=== PATIENT | female | born 1940 | race Caucasian/White ===

== ENCOUNTER 2018-09-14 12:39 | Inpatient (IN) ==
--- NOTE | 2018-09-14 13:29 | PROVIDER DOCUMENTATION ---
HPI-General Adult - General Chief Complaint: Abnormal Lab[s] Stated Complaint: IRREG LABS Time Seen by Provider: 09/14/18 13:15 Source: patient Allergies/Adverse Reactions: Patient Allergies Allergy/AdvReac Type Severity Reaction Status Date / Time Cephalosporins Allergy Severe ANAPHYLAXIS Verified 09/14/18 12:52 Penicillins Allergy Severe ANAPHYLAXIS Verified 09/14/18 12:52 prochlorperazine edisylate * Allergy Severe TETANY Verified 09/14/18 12:52 [From Compazine] prochlorperazine maleate * Allergy Severe TETANY Verified 09/14/18 12:52 [From Compazine] cephalexin monohydrate * Allergy Intermediate RASH Verified 09/14/18 12:52 [From Keflex] Iodinated Contrast- Oral and Allergy Intermediate HIVES Verified 09/14/18 12:52 IV Dye [Iodinated Contrast Media - IV Dye] Home Medications: Home Medication List Medication Instructions Recorded Confirmed Last Taken Type ATORVAstatin [Lipitor] 40 mg PO QHS 09/14/18 09/14/18 09/13/18 History Clonazepam 0.5 mg PO BID 09/14/18 09/14/18 09/14/18 History Gabapentin 300 mg PO TID 09/14/18 09/14/18 09/14/18 History Levothyroxine [Synthroid] 100 microgm PO DAILY 09/14/18 09/14/18 09/14/18 History Sertraline [Zoloft] 100 mg PO DAILY 09/14/18 09/14/18 09/14/18 History - History of Present Illness -Gen Adult Nature of Presenting Problems: 78yof present to ER with c/o 'abnormal labs". According to pt's spouse Dr Hina antonio's nurse called saying she had "some abnormal labs including jaundice" and referred pt to ER. Pt reports right sided abd pain radiating to the back x 1 month. Pt reports loose stools x 2 weeks. Denies fever. Location of Pain/Injury: reports: abdomen (right) Pain Radiation: reports: back Quality of Pain: reports: aching Onset/Duration: reports: other (1 month) Associated Symptoms: reports: diarrhea, shortness of breath. denies: chest pain, cough, fever/chills, genitourinary problems, nausea, syncope, vomiting Review of Systems - Adult - REVIEW OF SYSTEMS - ADULT Constitutional: reports: no symptoms reported. denies: fever Eyes: reports: no symptoms reported Ears, Nose, Mouth & Throat: reports: no symptoms reported Cardiovascular: reports: no symptoms reported. denies: chest pain, orthopnea, palpitations Respiratory: reports: see HPI, dyspnea on exertion, shortness of breath Gastrointestinal: reports: see HPI, abdominal pain, diarrhea. denies: nausea, vomiting Genitourinary: reports: no symptoms reported. denies: dysuria, frequency, hematuria, urgency Musculoskeletal: reports: see HPI, back pain Integumentary: reports: no symptoms reported Neurological: reports: no symptoms reported Psychiatric: reports: no symptoms reported Endocrine: reports: no symptoms reported Hematologic/Lymphatic: reports: no symptoms reported Allergic/Immunologic: reports: no symptoms reported All Other Systems: Reviewed and Negative Past History - Adult - PAST MEDICAL HISTORY-ADULT Review of Records: reports: Old Records Reviewed, Nursing Assessment Review, Medications Reviewed Major Childhood Illnesses: reports: denies history Cardiovascular: reports: blood clots, HTN, hyperlipidemia Respiratory: reports: denies history Gastrointestinal: reports: denies history Obstetrical/Gynecological: reports: denies history Genitourinary: reports: kidney stones Musculoskeletal: reports: osteoporosis Neurological: reports: CVA, dementia Endocrine/Immune: reports: thyroid disorder Other Conditions: reports: other (osteoporosis) - PRIOR SURGERIES/PROCEDURES Surgical/Procedure History: reports: appendectomy, cholecystectomy, hysterectomy , , orthopedic (extremity) (juanita shoulders, dvt's removed), joint r eplacement (Total hip), back/neck, other (dvt's removed, kidney stone removal) - IMMUNIZATION STATUS Childhood Immunizations: UTD, See Nurse Assessment Flu Vaccine: See Nurse Assessment - FAMILY HISTORY Family History: reviewed, not pertinent Physical Exam-General - PHYSICAL EXAM-ADULT Initial Vital Signs Reviewed: Yes - CONSTITUTIONAL General Appearance: alert, no apparent distress - EYES Eyes: PERRL/EOMI, pale conjunctivae, scleral icterus - HEAD, EARS, NOSE, MOUTH & THROAT HENMT: moist mucous membranes, normal ENT inspection - NECK Neck: full range of motion, supple, normal inspection - RESPIRATORY Respiratory: chest non-tender, lungs clear, normal breath sounds, no respiratory distress, no accessory muscle use - CARDIOVASCULAR Cardiovascular: regular rate, rhythm - GASTROINTESTINAL (ABDOMEN) Abdominal Exam: normal bowel sounds, soft, tenderness (right sided). negative: distended, guarding, rigid, rebound - LYMPHATIC Lymphatic: no adenopathy - MUSCULOSKELETAL Back Exam: normal inspection, no CVA tenderness, no vertebral tenderness Extremity: normal range of motion, normal inspection - SKIN Integumentary: normal turgor, warm/dry, jaundice - NEUROLOGIC Neurologic: grossly normal, no motor/sensory deficits - PSYCHIATRIC Psych/Mental Status: normal mood/affect, normal thought content, normal thought process, oriented x 3 Progress - PLAN OF CARE/RESULTS Progress/Plan/Lab Results: Vital Signs - 8 hr 09/14/18 12:45 Temperature 97.6 F Pulse Rate 93 H Respiratory Rate 18 Blood Pressure 129/85 O2 Sat by Pulse Oximetry 91 L Orders Category Date Time Status CHEST-2 VIEWS [RAD] Stat Exams 09/14/18 13:[address] ABD/PELVIS W/IV CONT ONLY [CT] Stat Exams 09/14/18 13:22 Ordered AMMONIA [CHEM] Stat Lab 09/14/18 13:22 Uncollected CBC WITH DIFF [HEME] Stat Lab 09/14/18 13:22 Uncollected COMPREHENSIVE METABOLIC PANEL [CHEM] Stat Lab 09/14/18 13:22 Uncollected LACTATE, PLASMA [CHEM] Stat Lab 09/14/18 13:22 Uncollected LIPASE [CHEM] Stat Lab 09/14/18 13:[address] W/POSS RFLX CULT [URINALYSIS] Stat Lab 09/14/18 13:22 Uncollected Result Diagrams: 09/14/18 14:04 09/14/18 14:04 - REASSESSMENT Reassessment #1 Time Reassessed: 14:52 (Discussed CT abd report and labs with Dr Mena, suggests ordering u/s of abdomen for further eval of pancreas and liver) Reassessment #2 Time Reassessed: 16:23 (Discussed results and plan for admission to [facility]. Agrees with this. ) - XRAY 1 XRAY Study: Chest Impression: See EMR Report (There is stable mild cardiomegaly. Inspiration is mildly shallow. There is scarring at the right upper lobe and left base similar to prior. The lungs appear to be clear of acute changes. There is no pleural effusion or pneumothorax identified. There are old mid thoracic vertebral body compression deformities noted. IMPRESSION: Stable mild cardiomegaly. Mildly shallow inspiration. No other evidence of acute disease. Electronically signed by Moses Graves 09/14/2018 2:41 PM) - CT/MRI 1 CT Study: Abdomen, Pelvis Impression: See EMR Report (There is a small, stable pulmonary nodule in the peripheral left lower lobe measuring about 8 mm. No infiltrates. Stable cholecystectomy changes. There are several obstructing stones in the right UPJ. The largest measures about 2 x 1 cm. There is moderate right hydronephrosis. There are also several right renal stones. On the left side, there is stable moderate hydronephrosis compatible with congenital UPJ stenosis. There are several sided renal stones as well measuring up to 12 x 8 mm. There is an IVC filter in good position. Stable right hip prosthesis. Stable vertebroplasty changes and fusion changes of the spine. No new bony lesions. No bowel obstruction or inflammation. IMPRESSION: Obstructing right UPJ stones. Significant bilateral nephrolithiasis. 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 This exam was performed using automated exposure control, adjustment of mA or kV according to patient size, and/or use of iterative reconstruction technique Electronically signed by Dawit Navarro 09/14/2018 2:33 PM) - ULTRASOUND (By Radiology) 1 US Study: Abdomen Impression: See EMR Report ( The gallbladder is absent. There is mild splenomegaly. The spleen measures 14.1 x 14 x 4 cm. There are bilateral renal stones and bilateral hydronephrosis. Common bile duct measures 1.2 cm. Aorta, IVC, and main portal vein are patent. No free fluid. IMPRESSION: Splenomegaly. Bilateral renal stones. Bilateral hydronephrosis. Electronically signed by Dawit Navarro 09/14/2018 3:58 PM) - CONSULTS/PCP/HOSPITALIST Notification #1 *Consult/PCP/Hospitalist*: Dr Garcia, hospitalist Time Discussed: 16:10 (requests I consult urology ) Consult Disposition: Admit #2 Consult: Dr Parham oncall urologist Time Discussed: 16:15 (States continue with cipro IV, admit pt to [facility] and he will see pt tomorrow) Reason/Comments: admit to [facility] Consult Disposition: Admit Departure - Departure Date of Disposition Decision: 09/14/18 Time of Disposition Decision: 16:04 DIAGNOSIS: Elevated LFTs, Jaundice Pancreatitis Qualifiers: Chronicity: acute Pancreatitis type: unspecified pancreatitis type Acute pancreatitis complication: unspecified Qualified Code(s): K85.90 - Acute pancreatitis without necrosis or infection, unspecified Disposition: ADMITTED INPATIENT 09 Certified Medical Emergency: Emergent Condition: Fair Referrals and Follow-Ups: Robinson Holt MD [Primary Care Provider] - - Critical Care Note This patient required my direct & personal management of CC.: No Attestation - Physician/ BETH Attestation Patient care was provided by Advanced Practice Provider:: Yes Advanced Practice Provider:: Debora Enriquez Advanced Practice Provider documentation review:: The Mid-level provider documentation, treatment plan and medical decision making was reviewed by the ph ysician who agrees with all treatment and medical decision making by the MLP. The physician spent face to face time with patient:: Yes Advanced Practice Provider documentation review:: Supervising physician onsite and consulted in the evaluation and care of this patient. The physician did have a face to face encounter with the patient.
[2018-09-14 14:15] LABS: BASO# 0.05 X1000 (0.0-0.2); BASO% 0.5 % (0.0-0.8); EOS# 0.31 X1000 (0.0-0.7); EOS% 3.1 % (0.0-10.0); HEMATOCRIT 36.7 % (37.0-47.0); IMM GRAN# 0.02 X1000 (0.0-0.04); IMM GRAN% 0.2 % (0.0-0.5); LYMPH# 1.34 X1000 (1.2-3.4); LYMPH% 13.2 % (20.5-51.1); MCH 28.6 PG (27-31); MCHC 32.7 g/dL (33-37); MCV 87.4 FL (81-99); MONO# 1.03 X1000 (0.11-0.59); MONO% 10.2 % (1.7-9.3); MPV 12.9 FL (7.4-10.4); NEUT# 7.39 X1000 (1.4-6.5); NEUT% 72.8 % (42.2-75.2); PLT 181 X1000 (130-400); RDW 14.8 % (11.5-14.5); WBC 10.14 X1000 (4.8-10.8)
[2018-09-14 14:30] LABS: INR 1.11; PROTIME 14.9 Seconds (11.0-16.0)
[2018-09-14 14:31] LABS: PTT 33.9 Seconds (22.3-41.8)
[2018-09-14 14:36] LABS: ALBUMIN 3.1 g/dL (3.5-5.0); CALCIUM 8.4 mg/dL (8.8-10.2); POTASSIUM 3.5 mmol/L (3.5-5.1); TOTAL BILIRUBIN 4.8 mg/dL (0.20-1.00); TOTAL PROTEIN 6.9 g/dL (6.3-8.3)
--- NOTE | 2018-09-14 14:36 | Diag Imaging Result Doc PS360 ---
CT ABDOMEN/PELVIS W/O CONTRAST - 09/14/2018 INDICATION: lower abdominal pain/tenderness COMPARISON: 08/17/2017 FINDINGS: There is a small, stable pulmonary nodule in the peripheral left lower lobe measuring about 8 mm. No infiltrates. Stable cholecystectomy changes. There are several obstructing stones in the right UPJ. The largest measures about 2 x 1 cm. There is moderate right hydronephrosis. There are also several right renal stones. On the left side, there is stable moderate hydronephrosis compatible with congenital UPJ stenosis. There are several sided renal stones as well measuring up to 12 x 8 mm. There is an IVC filter in good position. Stable right hip prosthesis. Stable vertebroplasty changes and fusion changes of the spine. No new bony lesions. No bowel obstruction or inflammation. IMPRESSION: Obstructing right UPJ stones. Significant bilateral nephrolithiasis. 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 This exam was performed using automated exposure control, adjustment of mA or kV according to patient size, and/or use of iterative reconstruction technique Electronically signed by Dawit Navarro 09/14/2018 2:33 PM
--- NOTE | 2018-09-14 14:43 | Diag Imaging Result Doc PS360 ---
EXAM: CHEST-2 VIEWS - 09/14/2018 HISTORY: sob TECHNIQUE: Chest two views COMPARISON: 04/09/2018 FINDINGS: There is stable mild cardiomegaly. Inspiration is mildly shallow. There is scarring at the right upper lobe and left base similar to prior. The lungs appear to be clear of acute changes. There is no pleural effusion or pneumothorax identified. There are old mid thoracic vertebral body compression deformities noted. IMPRESSION: Stable mild cardiomegaly. Mildly shallow inspiration. No other evidence of acute disease. Electronically signed by Moses Graves 09/14/2018 2:41 PM
[2018-09-14 15:23] LABS: BILIRUBIN URINE 2+ (NEGATIVE); BLOOD URINE 4+ (NEGATIVE); GLUCOSE URINE NEGATIVE (NEGATIVE); KETONE URINE TRACE mg/dL (NEGATIVE); LEUKOCYTES URINE 2+ (NEGATIVE); NITRITE URINE POSITIVE (NEGATIVE); PH URINE 6.5; PROTEIN URINE 2+(100 mg/dL) mg/dL (NEGATIVE); SP GRAVITY URINE 1.015; UROBILINOGEN URINE NORMAL
[2018-09-14 15:24] LABS: CLARITY VERY CLOUDY (CLEAR); COLOR AMBER
[2018-09-14 15:27] LABS: URINE BACTERIA 4+ /HFP; URINE CAST NONE SEEN /LPF; URINE CRYSTAL NONE SEEN /HPF; URINE EPITHELIAL CELLS <10 /HPF (<10); URINE RBC TNTC /HPF (<10); URINE SOURCE CLEAN CATCH; URINE WBC TNTC /HPF (<10); URINE YEAST NONE SEEN /HPF
[2018-09-14] MEDS ORDERED: CIPRO 400 MG/D5W 400 MG/200 ML IVPB IV ONE (15:30)
--- NOTE | 2018-09-14 16:00 | Diag Imaging Result Doc PS360 ---
US ABDOMEN-COMPLETE - 09/14/2018 INDICATION: abd pain, elevated LFTs, pancreatitis COMPARISON: CT from earlier today FINDINGS: The gallbladder is absent. There is mild splenomegaly. The spleen measures 14.1 x 14 x 4 cm. There are bilateral renal stones and bilateral hydronephrosis. Common bile duct measures 1.2 cm. Aorta, IVC, and main portal vein are patent. No free fluid. IMPRESSION: Splenomegaly. Bilateral renal stones. Bilateral hydronephrosis. Electronically signed by Dawit Navarro 09/14/2018 3:58 PM
--- NOTE | 2018-09-14 17:03 | HISTORY AND PHYSICAL ---
PRIMARY CARE PHYSICIAN: DR. Holt. CHIEF COMPLAINT: Right-sided abdominal pain radiating to her back for 1 month that had progressively worsened. States that her primary care physician's nurse called after she had some labs drawn, saying they were abnormal and that she was jaundiced and she needed to come to the emergency room. HISTORY OF PRESENTING ILLNESS: This is an 78-year-old female, who presents to [facility] ER with complaints of right-sided abdominal pain that radiated to her back that has been present for about a month but has progressively worsened. She had apparently been seen by her primary care physician, who ordered some labs and the nurse called today from the primary care physician's office, stating that she had some "abnormal labs including jaundice," and referred her to come to the emergency room. Her laboratory data showed a total bilirubin of 4.80, an AST of 90, ALT 57, alkaline phosphatase was 689. Ammonia level was normal at 40. Lipase was 1064. Her urinalysis showed positive nitrites, 2+ white blood cells, 4+ bacteria. 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 We did an abdomen ultrasound that showed splenomegaly, bilateral renal stones, and bilateral hydronephrosis. She is noted to be jaundice in color, including the jaundice to the sclerae of her eyes and so she will be admitted to the [facility] for Gastroenterology and Urology consultation for further evaluation and treatment. PAST MEDICAL HISTORY: Hypertension, hyperlipidemia, kidney stones, CVA, hypothyroidism, and dementia. PAST SURGICAL HISTORY: Appendectomy, cholecystectomy, hysterectomy, right total hip replacement, back and neck surgery, a , right shoulder surgery, and an IVC filter placed in her thigh for a DVT. FAMILY HISTORY: Reviewed and noncontributory. SOCIAL HISTORY: She currently lives with family. Denies any tobacco, alcohol, or illicit drug use. ALLERGIES: Cephalosporins, penicillin, Compazine, and iodinated contrast, oral and IV dye. HOME MEDICATIONS: We will hold her atorvastatin 40 mg p.o. at bedtime and continue the following: Klonopin 0.5 mg p.o. b.i.d., gabapentin 300 mg p.o. t.i.d., Synthroid 100 mcg p.o. daily and Zoloft 100 mg p.o. daily. LABORATORY DATA: Showed a white blood cell count of 10.14, hemoglobin 12, hematocrit 36.7, platelets 181,000. PT of 14.9 and INR 1.11. Sodium of 140, potassium 3.5, chloride 105, CO2 of 23, BUN of 13, creatinine 1, glucose 275, total bilirubin of 4.80, AST of 90, ALT 57, alkaline phosphatase 689, ammonia level of 40. Lipase 1064 with a plasma lactate of 1.1. Urinalysis with positive nitrites, 4+ blood, 2+ white blood cells, 4+ bacteria. 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 Abdominal ultrasound showed splenomegaly, bilateral renal stones, and bilateral hydronephrosis. REVIEW OF SYSTEMS: She denied any fever, chills, blurred vision, dizziness, chest pain, coughing, shortness of breath. She was positive for right-sided abdominal pain that radiated into her back, some nausea, but no vomiting. She has had loose stool, but denied diarrhea or constipation, and has had some mild burning and hurting with urination. PHYSICAL EXAMINATION: VITAL SIGNS: On arrival she had a temperature of 97.6 degrees, pulse 93, respirations 18, blood pressure 129/85, saturating 91% on room air. GENERAL: This is an 78-year-old female, lying in the bed, answers questions appropriately. HENT: Normocephalic, atraumatic. Normal ENT inspection. Oropharynx and nares are clear. EYES: Pupils are equal, round, reactive to light and accommodation. Extraocular movements are intact. Her sclerae are noted to be jaundiced. NECK: Normal inspection. Normal range of motion. LUNGS: Clear to auscultation bilaterally with equal lung expansion and chest wall movement. HEART: With regular rate and rhythm. No murmurs, rubs, or gallops. ABDOMEN: Soft. There is tenderness to the right side of her abdomen to palpation. Bowel sounds are present x4 quadrants. MUSCULOSKELETAL: She has 5/5 strength x4 extremities. SKIN: Noted to be an jaundiced mildly in appearance. NEUROLOGICAL: The cranial nerves 2-12 appear grossly intact. ASSESSMENT: 1. Bilateral renal stones. 2. Bilateral hydronephrosis. 3. Urinary tract infection (UTI). 4. Acute pancreatitis. 5. Elevated liver function tests. PLAN: She will be transferred to the [facility]. Placed on telemetry. We will consult Urology and Gastroenterology. We will place on normal saline at 100 mL an hour, Rocephin 1 gram IV q.24 h. Urine culture is pending. Placed on a clear liquid diet. We will check a CBC, BMP, and hepatic function and a magnesium level in the a.m. Further orders after being seen by attending and by consultants. Dictated by FRED Horne for Bj Shin MD Addendum: Patient seen and examined by myself. Agree with FRED note. It reflects my assessment and plan. Patient is being admitted to hospital for new onset of acute pancreatitis. She came for abdominal pain and on CT scan of abdomen we found out bilateral hydronephrosis with bilateral stones. Will consult GI and Urology and follow recommendations. cc: MD Vicki Amaya CRNP Cesar Garcia-Rodriguez, MD MTDD
[2018-09-14] MEDS ORDERED: ZOFRAN IV PRN (18:03)
[2018-09-14] MEDS ORDERED: NS 1,000 ML IV SCH (18:03)
[2018-09-14] MEDS ORDERED: ROCEPHIN 1 GM in NS 50 ML IV SCH (18:03)
--- NOTE | 2018-09-14 19:49 | GASTROENTEROLOGY CONSULTATION ---
DATE: 09/14/2018 REASON FOR CONSULTATION: Elevated liver function tests, pancreatitis, jaundice. HISTORY OF PRESENT ILLNESS: This is an 78-year-old female who had seen Dr. Holt for a regular visit and lab work on Tuesday. They called her today and instructed her to go to the emergency room for abnormal findings on lab work. She presented to [facility]. She reports having abdominal pain for over a month that has gotten worse. She reports right side pain along with epigastric pain that radiates to the back. She has reported episodes of nausea and vomiting, especially after eating. She has reported chronic loose stools for years. She usually has 3 to 4 loose stools daily. She reports the color of the stool as brown in color, not pale. She has not noticed any dark urine. She denies itching. She does report psoriasis on her chest. She has an appointment with Dr. August in the near future. She is on no medications or creams. She reports having a colonoscopy in the past, but it has been over 20 years. She has a history of cholecystectomy approximately 5 or 10 years ago. She is not sure of the date. She denies alcohol use. She denies tobacco use. She is , she has 5 children. 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 She also has moderate right hydronephrosis. She has been seen by Urology. She has a Szymanski catheter in place. She reports maybe some mild weight loss, maybe some decreased appetite, although her thinks she eats well. She was also found to have elevated bilirubin and liver function test, elevated lipase. She has diagnosis of urinary tract infection. She had not noticed any jaundice. Currently, she describes her pain as a level 2 out of 10. PAST MEDICAL HISTORY: Hypertension, hyperlipidemia, history of kidney stones, history of CVA, hypothyroidism, history of dementia. PAST SURGICAL HISTORY: Appendectomy, cholecystectomy, hysterectomy, right total hip replacement, back and neck surgery, , right shoulder surgery, history of IVC filter due to history of DVT in her thigh. ALLERGY: To cephalosporin causing anaphylaxis, penicillin causing anaphylaxis, Compazine tetany, Keflex rash, IV dye hives. HOME MEDICATIONS: Lipitor 40 mg every night, Clonazepam 0.5 mg twice a day, gabapentin 300 mg 3 times a day, Synthroid 100 mcg daily, Zoloft 100 mg daily. SOCIAL HISTORY: She denies tobacco or alcohol use. She is . She has 5 children. REVIEW OF SYSTEMS: Per history of present illness. PHYSICAL EXAMINATION: Vital Signs: Temperature 98.0, pulse 78, respirations 16, blood pressure 170/81. General: Patient is awake, alert, in no acute distress. HEENT: With some mild scleral jaundice noted. Chest: With some abrasions. Skin scabs. Patient states she picks the scabs. She has an appointment with alley cleaner Dr. August. Respiratory: Lung sounds essentially clear bilaterally. Cardiovascular: Regular rate and rhythm. Abdomen: Obese, tenderness right side and epigastric area. Otherwise, soft with positive bowel sounds. Extremities: No lower extremity edema noted. Skin: With mild jaundice noted. Also, abrasions/scabbed area on her chest. Neurologic: Cranial nerves 2-12 grossly intact. DIAGNOSTIC RESULTS: Laboratory: Hematology: WBC 10.14, hemoglobin 12.0, hematocrit 36.7, MCV 87.4, platelet 181,000 Coagulation: Pro time 14.9, INR 1.11, PTT 33.9. Chemistry: Sodium 140, potassium 3.5, chloride 105, CO2 of 23, BUN 13, creatinine 1.1, glucose 275, calcium 8.4, total bilirubin 4.80, AST 90, ALT 57, alkaline phosphatase 689. Ammonia 40, lipase 1064. Urinalysis positive for urinary tract infection. Abdominal and pelvis CT scan showed obstructive right UPJ stones. Significant bilateral nephrolithiasis, moderate right hydronephrosis. Abdominal ultrasound showed splenomegaly, bilateral renal stones, bilateral hydronephrosis. CT scan was without contrast due to her allergy. Unable to fully examine the pancreas. ASSESSMENT AND PLAN: 1. Abdominal pain. 2. Elevated liver function tests. 3. Elevated lipase. 4. Urinary tract infection. 5. Bilateral renal stones and hydronephrosis seen by Urology. 6. Possible pancreatitis. PLAN: Continue symptomatic treatment. Supportive care. Continue IV fluids. Continued n.p.o. except for sips of ice and water. Will get CA 19-9. Repeat liver function tests, amylase, and lipase in the morning. P.r.n. medication for pain if needed. Follow recommendations from urologist. Further plans to be made according to her progress. The patient was also seen and examined by Dr. Martínez. Thank you for this consultation. Dictated by FRED Rubio for Shivam Martínez MD cc: FRED Riggs MD Alexis R. Penot, MD
[2018-09-14] MEDS: NS 1,000 ML IV SCH (20:11)
[2018-09-14] MEDS: AZACTAM 1 GM in NS 50 ML IV SCH (20:11)
[2018-09-14] MEDS: KLONOPIN PO SCH (20:12)
[2018-09-14] MEDS: NEURONTIN PO SCH (20:12)
--- NOTE | 2018-09-14 21:02 | CONSULTATION ---
DATE OF CONSULTATION: 09/14/2018 CHIEF COMPLAINT: Abdominal pain that radiates into her back. HISTORY OF PRESENT ILLNESS: Ms. Mendoza is an 78-year-old, with hypertension, hyperlipidemia, history of kidney stones, history of CVA, hypothyroidism, history of dementia, who presented to [facility] after she was told she had abnormal lab values. The patient was found to have significant increase in her bilirubin to 4.8. Her AST was elevated at 90, ALT of 57, and alkaline phosphatase of 689. The patient elevated lipase, and was subsequently referred to the hospital for evaluation for possible pancreatic mass. She was evaluated at that time, undergoing abdominal ultrasound as well as a CT abdomen and pelvis. 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 The patient was transferred to [facility] for evaluation by Gastroenterology and Urology. The patient has a long history of kidney stones and has undergone multiple procedures. Most recently, she underwent a percutaneous nephrostolithotomy of the right kidney by Dr. Cardoza in 2017. Since then, she has done relatively well and has not been seen in clinic since then. She knew that her kidney stones were reforming, but denies significant flank pain. She denies any fevers or chills. She states that she felt like her skin was getting yellow and had worsening pain that radiated from her epigastric region into her back. This was associated with nausea and vomiting. The patient has a long history of loose stools, having 3 to 4 loose stools daily, and this has remained relatively stable. She did state that her urine was malodorous now and is also increased in concentration. Urology was consulted for recommendations regarding for CT evidence of bilateral renal stones. PAST MEDICAL HISTORY: 1. Hypertension. 2. Hyperlipidemia. 3. History of kidney stones. 4. History of CVA. 5. Hypothyroidism. 6. History of dementia. PAST SURGICAL HISTORY: 1. Appendectomy. 2. Cholecystectomy. 3. Hysterectomy. 4. Right total hip replacement. 5. Back and neck surgery. 6. . 7. Right shoulder surgery. 8. Right PCNL. 9. History of IVC filter placement. ALLERGIES: Cephalosporin, penicillin, Compazine, Keflex, and IV dye. HOME MEDICATIONS: 1. Lipitor 40 mg every night. 2. Clonazepam 0.5 mg b.i.d. 3. Gabapentin 300 mg t.i.d. 4. Synthroid 100 mcg daily. 5. Zoloft 100 mg daily. SOCIAL HISTORY: Denies alcohol or illicit drug use. Denies smoking. She is and her is present with her at bedside. REVIEW OF SYSTEMS: A 12 point review of systems was performed with all pertinent positives and negatives in HPI. PHYSICAL EXAMINATION: Vital Signs: Temperature 98.3 degrees, heart rate 73, blood pressure 132/93, oxygen saturation 97 on 3 L nasal cannula. General: Denies any pain. No acute distress, resting comfortably in bed, alert and oriented x3. HEENT: Mild scleral icterus noted. Normocephalic, atraumatic. Pupils equal, round, and reactive to light. Mucous membranes moist. Neck: Trachea midline with no obvious deformities. Chest: Good respiratory effort without audible wheezing or rales. Cardiovascular: Regular rate and rhythm. Abdomen: Soft. Tenderness to palpation over her mid epigastric region with spot tenderness in her lower abdomen, with what feels like a possible abdominal hernia. : No suprapubic tenderness. No CVA tenderness. Urethral catheter in place with concentrated urine. Extremities: Moving all extremities. Skin: Jaundice present with evidence of exenteration on her chest wall. Neurologic: Gross motor and sensory intact. LABS: White blood cell count 10.1, hemoglobin 12, hematocrit 36.7, platelets 181,000. Sodium 140, potassium 3.5, chloride 105, bicarb 23, creatinine 1, BUN 13, glucose 273, AST 90, ALT 57, alkaline phosphate 689, lipase 1064. Urinalysis: 2+ protein, positive nitrites, smh-gwytwidk-od- count RBCs, too numerous to count white blood cells, 4+ bacteria. IMAGING: CT abdomen and pelvis was reviewed, and shows multiple bilateral renal stones with stable appearance of renal dilation bilaterally. CT scan from 10/19/2017 showed stable appearance of ureteropelvic junction on the left with several small stones present within the kidney. The patient has developed worsening stone disease in the right kidney over that time, with slight worsening of renal pelvis dilation. The patient does have an abdominal wall hernia with what appears to be omentum or fat present. It appears to be non- strangulated. ASSESSMENT AND PLAN: Mrs. Mendoza is an 78-year-old with hypertension, hyperlipidemia, history of nephrolithiasis, history of cerebrovascular accident, hypothyroidism, and history of dementia, who presented in consultation regarding likely urinary tract infection and bilateral renal stones. The patient has a large stone burden in both kidneys which appears to have been present for a number months now. Reviewing prior imaging shows stable dilation of both collecting systems. She has had worsening stone disease in the right kidney. These images were reviewed with Dr. Cardoza and we will continue to monitor her renal function as it is close to her baseline. I think the patient does have a urinary tract infection and warrants continued intravenous antibiotics, and tailored to culture specific data. The pain she describes seems less likely renal colic and more likely related to pancreatitis as her bilirubin, lipase, and liver enzymes are significantly elevated. She points to mid abdominal epigastric pain rather than bilateral flank pain. She does have a significant stone burden which could be leading to pain, but she denies any obvious flank or back pain. We will continue to monitor. Will discuss with Dr. Cardoza, keep NPO in case needs to have cystoscopy, bilateral retrograde pyelograms and possible ureteral stent placement. We will continue with indwelling catheter during her acute illness, and continue to follow recommendations by GI Medicine. Will follow. Please call with questions or concerns. cc: MD Kaden Mueller MD [facility]
[2018-09-14] MEDS: HUMULIN R SUBQ SCH (22:50)
[2018-09-15] MEDS: AZACTAM 1 GM in NS 50 ML IV SCH ×3 (03:50→18:00)
[2018-09-15] MEDS: NS 1,000 ML IV SCH ×2 (03:50→09:38)
[2018-09-15 06:15] LABS: BASO# 0.05 X1000 (0.0-0.2); BASO% 0.5 % (0.0-0.8); EOS# 0.36 X1000 (0.0-0.7); EOS% 3.8 % (0.0-10.0); HEMATOCRIT 35.9 % (37.0-47.0); HEMOGLOBIN 11.2 g/dL (12.0-16.0); IMM GRAN# 0.02 X1000 (0.0-0.04); IMM GRAN% 0.2 % (0.0-0.5); LYMPH# 1.16 X1000 (1.2-3.4); LYMPH% 12.3 % (20.5-51.1); MCH 27.9 PG (27-31); MCHC 31.2 g/dL (33-37); MCV 89.3 FL (81-99); MONO# 0.94 X1000 (0.11-0.59); NEUT# 6.87 X1000 (1.4-6.5); NEUT% 73.2 % (42.2-75.2); PLT 181 X1000 (130-400); RBC 4.02 XMIL (4.2-5.4); RDW 14.9 % (11.5-14.5)
[2018-09-15] MEDS: SYNTHROID PO SCH (06:15)
[2018-09-15 06:31] LABS: HEMOGLOBIN A1C 6.4 % (4.8-6.0)
[2018-09-15 06:35] LABS: ALB/GLOB RATIO 0.8; ALBUMIN 2.9 g/dL (3.5-5.0); CALCIUM 7.7 mg/dL (8.8-10.2); CREATININE 0.9 mg/dL (0.5-0.9); POTASSIUM 3.3 mmol/L (3.5-5.1); TOTAL BILIRUBIN 4.87 mg/dL (0.20-1.00); TOTAL PROTEIN 6.6 g/dL (6.3-8.3)
[2018-09-15 06:46] LABS: MAGNESIUM 1.5 mg/dL (1.5-2.7)
[2018-09-15] MEDS: KLONOPIN PO SCH ×2 (09:36→21:09)
[2018-09-15] MEDS: ZOLOFT PO SCH (09:36)
[2018-09-15] MEDS: NEURONTIN PO SCH ×3 (09:37→18:00)
[2018-09-15] MEDS: HUMULIN R SUBQ SCH ×3 (11:22→21:10)
--- NOTE | 2018-09-15 12:45 | GASTROENTEROLOGY PROGRESS NOTE ---
DATE: 09/15/2018 SUBJECTIVE: The patient states she feels a little better. She does still complain of some abdominal pain. There are plans for her to have a urology procedure today. Liver function tests continue to be elevated. Her lipase is slightly improved. OBJECTIVE: Vital Signs: Temperature 97.7 degrees, pulse 69, respirations 18, blood pressure 154/59. General: The patient is awake, alert, and in no acute distress. Abdomen: Some tenderness with palpation. Otherwise soft with positive bowel sounds. LABORATORY DATA: Hematology: WBC 9.40, hemoglobin 11.2, hematocrit 35.9, MCV 89.3, platelet 181,000. Chemistry: Sodium 142, potassium 3.3, chloride 109, CO2 21, BUN 12, creatinine 0.9, glucose 156. Total bilirubin 4.87, AST 87, ALT 51, alkaline phosphatase 673. Amylase 180, lipase 886. ASSESSMENT AND PLAN: 1. Abdominal pain. 2. Elevated liver function tests. 3. Elevated lipase. 4. Urinary tract infection. 5. Bilateral renal stones and hydronephrosis seen by Urology with plans for Urology procedure today. 6. Pancreatitis. Continue symptomatic treatment and supportive care. We are awaiting CA-19-9. Continue to follow liver function tests and pancreatic enzymes. Continue p.r.n. medications for pain. Depending on her progress with may decide depending on her progress. May recommend MRCP for further evaluation. Further plans will be made as needed. The patient was also seen by Dr. Martínez. Dictated by FRED Rubio for Shivam Martínez MD cc: FRED Riggs MD Alexis R. Penot, MD
[2018-09-15] MEDS ORDERED: DIPRIVAN 1% ONE ×2 (12:54→13:30)
[2018-09-15] MEDS ORDERED: XYLOCAINE-MPF 2% ONE ×2 (12:54→13:30)
--- NOTE | 2018-09-15 14:32 | PROGRESS NOTE ---
DATE: 09/15/2018 SUBJECTIVE: Patient reports when patient is resting lying in bed there is no pain, but when she moves some there is moderate epigastric pain. OBJECTIVE: Vitals: Temperature 97.7 degrees, heart rate 69, respiratory rate 18, blood pressure 154/59, O2 saturation 99% on 2 L nasal cannula. General examination: This is a chronically ill- looking, 86-year-old female with icteric face and conjunctivae, lying in bed in no acute distress. HEENT: Head is normocephalic, atraumatic, with icteric sclerae and pale conjunctivae. Neck: No JVD noted. No carotid bruits. No lymphadenopathy. No thyromegaly. Cardiovascular exam: S1, S2 heard. No murmurs, gallops, or rubs. Regular rate and rhythm. Respiratory exam: Clear bilaterally to auscultation. No work of breathing or using accessory muscles. Abdomen: Soft, nontender to palpation. Bowel sounds present. No organomegaly. Extremities: No clubbing, cyanosis, or edema. Peripheral pulses present in both legs. Neurological exam: Patient is alert and oriented x3. Moves 4 extremities. LABORATORY DATA: Reviewed. ASSESSMENT AND PLAN: 1. Bilateral hydronephrosis with renal stones. Patient has been evaluated by Urology and they are planning to do cystoscopy with stent placement this afternoon. We will follow recommendations. Renal function is completely back to normal today. 2. Acute pancreatitis. We have consulted Gastroenterology, who recommend medical treatment. We will continue with intravenous fluids and pain management. Magnetic resonance cholangiopancreatography has been recommend. Will try to do it today. Otherwise we will need to do it on Tuesday. We will continue to monitor. 3. Urinary tract infection. We will continue with intravenous antibiotics. 4. Disposition: We will continue to monitor this patient closely. cc: MD Kaden Magana MD
[2018-09-15] MEDS ORDERED: TORADOL ONE (14:41)
[2018-09-15] MEDS ORDERED: ROBINUL ONE (14:44)
--- NOTE | 2018-09-15 15:07 | Diag Imaging Result Doc PS360 ---
EXAM: RETROGRADES 2 OR 3 FILMS 09/15/2018 HISTORY: CYSTO BILAT RETROGRADES RT STENT PLACEMENT TECHNIQUE: Retrograde pyelogram, 13 images COMMENT: Numerous calculi are present on the obstetrician gynecologist image bilaterally. There are numerous filling defects seen in the collecting systems particularly the right collecting system. There is apparent ureteropelvic junction stenosis on the left side. A stent was placed at the termination of the procedure by Dr. Cardoza. Note is made of a vena cava filter, fusion at the L5-S1 level posterior laterally and kyphoplasty at L2. IMPRESSION: Bilateral nephro lithiasis. Left-sided ureteropelvic junction stenosis. Right ureteral stent placement. Electronically signed by Keyshawn Frye 09/15/2018 3:05 PM
[2018-09-15] MEDS ORDERED: NORCO-5 PO PRN (15:54)
--- NOTE | 2018-09-15 17:47 | Diag Imaging Result Doc PS360 ---
EXAM: MRI ABDOMEN W/CONTRAST 09/15/2018 HISTORY: acute pancreatitis vs mass TECHNIQUE: Axial T2, 3-D axial lava flex in and out of phase T1, coronal T2, water 3-D coronal in and out of phase and post gadolinium-enhanced in an out of phase axial with 3-D MIPS MRCP. COMMENT: The common bile duct is dilated to over a centimeter. This tapers in the area of the head of the pancreas as does the pancreatic duct which is also dilated at over 6 mm. The branch ducts are prominent and there are several small scattered cystic areas seen in the body and tail of the pancreas with some larger cystic area seen in the head. There is apparent bilateral hydronephrosis. There is intrahepatic biliary dilatation. There is a slightly enhancing mass around the ampulla and distal ducts measuring 2.4 x 1.4 cm in the coronal plane and apparently 1.6 x 2.5 cm in the axial plane. On the precontrast images appears considerably less intense than the normal pancreas. The adrenal glands are not enlarged. There are otherwise no apparent abnormalities in the liver. IMPRESSION: Apparent mass in the head of the pancreas. Electronically signed by Keyshawn Frye 09/15/2018 5:45 PM
--- NOTE | 2018-09-15 18:39 | OPERATIVE NOTE ---
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 PROCEDURE: Cystoscopy, bilateral retrograde pyelograms, placement of right 6-[place] 24 cm ureteral stent. INDICATIONS: An 78-year-old female known to [place] secondary to history of left ureteropelvic junction obstruction as well as bilateral kidney stones. She is admitted for GI issues, does have abdominal pain. She underwent imaging with CT scan, which revealed bilateral renal stones with several obstructing right ureteropelvic junction stones and hydronephrosis on that side as well as what appeared to be left stable hydroureteronephrosis secondary to ureteropelvic junction obstruction. She presents for placement of ureteral stent given her obstructing right UPJ stones. FINDINGS: Cystoscopy was unremarkable. Left retrograde pyelogram confirmed extrarenal pelvis, tortuous proximal ureter with left ureteropelvic junction obstruction. Right retrograde pyelogram revealed a filling defects at the level of the ureteropelvic junction consistent with obstructing stone. Successful placement of the right ureteral stent. DESCRIPTION OF PROCEDURE: After obtaining informed consent, patient was brought to the operating room. Perioperative antibiotics and laryngeal mask anesthesia were administered. She was placed in lithotomy position, prepped and draped in usual sterile fashion. A 21-[place] cystoscope was used to gain access to the bladder, which was then examined in systematic fashion. She had a few trabeculations but no significant diverticula. No lesions within the bladder lumen other than the erythema on the posterior bladder wall consistent with Szymanski catheter, which was introduced upon patient's admission. We turned attention to the left ureteral orifice, which was cannulated with cone-tip ureteral catheter. We performed retrograde pyelogram, which revealed delicate ureter and tortuous proximal ureter with a left hydronephrosis. It appeared that either the ureter was inserted higher or there was a left extrarenal pelvis that was tilting over the ureter, but in either case, there was narrowing at the level of the ureteropelvic junction and left hydronephrosis consistent with UPJ obstruction. This has been seen on previous retrograde pyelograms. We then performed retrograde pyelogram on the right side, which revealed multiple filling defects within the renal pelvis and the ureteropelvic junction area. We then placed a PTFE wire via the right ureteral orifice up to the level of the renal pelvis. A 6-[place], 24 cm ureteral stent was advanced over the wire via the cystoscope with proximal coil position confirmed in the upper pole of the right kidney fluoroscopically and distal coil directly visualized. The string was detached from the stent. The cystoscope was removed. A 16-[place] Szymanski catheter was reintroduced, and the bladder was drained. She was extubated and taken to PACU for the recovery. ESTIMATED BLOOD LOSS: None. COMPLICATIONS: None. DISPOSITION: To PACU and subsequently to floor for observation with Szymanski catheter to gravity drainage. I have discussed with the patient prior to the surgery that we placed her right ureteral stent in order to decompress her kidney and keep her from getting significant infection and possible bacteremia. I discussed with the patient that she would benefit in the future from right percutaneous nephrostolithotomy, but she should obviously complete her workup of her GI issues and jaundice. She has voiced understanding. I will plan on seeing Ms. Caroline Mendoza after she is discharged from the hospital in my clinic to set her up for right percutaneous nephrostolithotomy. cc: MD Kaden Rodarte MD
[2018-09-15] MEDS: ULTRAM PO PRN (21:06)
[2018-09-16] MEDS: PERIDEX MT SCH ×3 (00:32→20:13)
[2018-09-16] MEDS: AZACTAM 1 GM in NS 50 ML IV SCH ×4 (02:25→22:28)
[2018-09-16] MEDS: SYNTHROID PO SCH ×2 (05:22→06:03)
[2018-09-16] MEDS: NS 1,000 ML IV SCH ×3 (05:22→15:07)
[2018-09-16 05:54] LABS: BASO# 0.04 X1000 (0.0-0.2); BASO% 0.4 % (0.0-0.8); EOS# 0.23 X1000 (0.0-0.7); EOS% 2.1 % (0.0-10.0); HEMATOCRIT 34.5 % (37.0-47.0); HEMOGLOBIN 10.9 g/dL (12.0-16.0); IMM GRAN# 0.02 X1000 (0.0-0.04); IMM GRAN% 0.2 % (0.0-0.5); LYMPH# 1.19 X1000 (1.2-3.4); LYMPH% 10.9 % (20.5-51.1); MCH 28.1 PG (27-31); MCHC 31.6 g/dL (33-37); MCV 88.9 FL (81-99); MONO# 0.91 X1000 (0.11-0.59); MONO% 8.4 % (1.7-9.3); MPV 13.2 FL (7.4-10.4); NEUT# 8.48 X1000 (1.4-6.5); PLT 171 X1000 (130-400); RBC 3.88 XMIL (4.2-5.4); RDW 15.1 % (11.5-14.5); WBC 10.87 X1000 (4.8-10.8)
[2018-09-16] MEDS: HUMULIN R SUBQ SCH ×5 (06:04→20:19)
[2018-09-16 06:27] LABS: AGAP 8; ALB/GLOB RATIO 0.8; ALBUMIN 2.6 g/dL (3.5-5.0); ALKALINE PHOSPHATASE 684 U/L (32-104); BUN 10 mg/dL (8-22); CALCIUM 8.3 mg/dL (8.8-10.2); CHLORIDE 111 mmol/L (98-107); COSMO 284; CREATININE 0.8 mg/dL (0.5-0.9); ESTIMATED GFR > 60; GLUCOSE 133 mg/dL (70-104); GOT 71 U/L (10-30); GPT 39 U/L (10-36); SODIUM 142 mmol/L (136-145); TCO2 23 mmol/L (25-35); TOTAL BILIRUBIN 4.51 mg/dL (0.20-1.00)
[2018-09-16] MEDS: ZOLOFT PO SCH (09:07)
[2018-09-16] MEDS: NEURONTIN PO SCH ×3 (09:07→18:27)
[2018-09-16] MEDS: KLONOPIN PO SCH ×2 (09:10→20:11)
[2018-09-16] MEDS ORDERED: BACITRACIN OINTMENT TOP ONE (10:07)
--- NOTE | 2018-09-16 12:21 | PROGRESS NOTE ---
DATE: 09/16/2018 SUBJECTIVE: This patient is lying in bed, in no acute distress. As per the patient, she has some abdominal soreness but she is hungry. She has been tolerating a liquid diet and she wants the diet to be advanced, I will advance it to full liquid diet and tomorrow I will advance it more if she is tolerating that. She is status post cystoscopy, bilateral retrograde pyelograms, placement of a right ureteral stent. She seems to be feeling better. Abdomen MRI showed a possibility of a mass in the head of the pancreas, patient has been notified and apparently she has been told that she will get a biopsy. OBJECTIVE: Vital Signs: Temperature 97.8 degrees, pulse 68, respiratory rate 18, blood pressure 137/67, oxygen saturation 99 on room air. HEENT: Head normocephalic. No trauma. PERRLA. Neck: Supple. No JVD. No masses. Central trachea. Chest: Clear to auscultation. No wheezing. No rales. Abdomen: Soft. Some tenderness to palpation around the periumbilical area and epigastric area. Extremities: No edema. No clubbing. No cyanosis. Neurological: The patient is alert and oriented x3. No focal deficits. His sclerae is icteric. LABORATORY DATA: WBC 10.8, hemoglobin 10.9, hematocrit 34.5, platelets 171,000. Sodium 142, potassium 4, chloride 111, bicarbonate 23, BUN 10, creatinine 0.8, glucose 133, calcium 8.3. Total bilirubin 4.5, AST 71, ALT 39, alkaline phosphatase 684, albumin 2.6. Urine culture showed Providencia stuartii. ASSESSMENT AND PLAN: 1. Bilateral hydronephrosis with renal stone status post cystoscopy, bilateral retrograde pyelograms and placement of a right lateral stent, postoperative day #1. This patient seems to be doing a little bit better. She is hungry and she is asking for food. 2. Acute pancreatitis Gastroenterology Department on board. She has been getting IV fluids, pain medication. I will advance the diet to a full liquid diet. MRI of the abdomen showed the possibility of a pancreatic mass, likely the patient will need a biopsy. I will wait for more recommendations. 3. Urinary tract infection with a positive urine culture that showed Providencia stuartii. She is not complaining of burning sensation or problem urinating at this moment. I will continue with the same management. I will repeat the urine culture today. 4. Hypertension, stable. 5. Hyperlipidemia. We will monitor. 6. History of cerebrovascular accident. Aware. She does have some left lower extremity weakness. Will ask Physical Therapy evaluation. 7. Hypothyroidism. Continue with levothyroxine. cc: MD Kaden Mccollum MD
--- NOTE | 2018-09-16 14:40 | GASTROENTEROLOGY PROGRESS NOTE ---
DATE: 09/16/2018 Patient was sitting up in the chair resting comfortably. She reports no abdominal pain or nausea or vomiting. She is tolerating liquid diet very well and has felt better since admission. She had her ureteral stent placed yesterday and it did go very well and she is comfortable.Vital Signs: Temperature is 97.8 degrees, pulse is 68 per minute, breathing 18, blood pressure 137/67. Eyes. Conjunctivae is normal. Sclerae mildly icteric. Abdomen is full, slightly obese soft, nontender bowel sounds are audible. LABS: Her transaminases are stable. AST 71, ALT 39, alkaline phosphatase around 684 and total bilirubin 4.51. She did not have her amylase, lipase done today. We are still waiting for CA19- 9 to be reported back. MRCP was done yesterday which showed a small mass in the head of the pancreas which was about 2.5 cm x 1.4 cm and she did have dilated common bile duct over a centimeter which is tapered down to 6 mm at the ampulla. She does have intrahepatic biliary dilation as well. IMPRESSION: Obstructive jaundice most likely from carcinoma of the pancreas. She needs ERCP and possible stent placement. She will be scheduled for that for Tuesday. In the meantime, I will start her on low fat diet if she can tolerate and will keep her NPO after Tuesday midnight. She will be kept NPO Tuesday midnight for the procedure on Tuesday. I have explained the findings and plan to the patient. She understands. All the pertinent questions answered. Rest of the medical treatment as per team. cc: MD Kaden Valdez MD
[2018-09-16] MEDS: ULTRAM PO PRN (20:11)
[2018-09-17] MEDS: AZACTAM 1 GM in NS 50 ML IV SCH ×4 (04:39→21:45)
[2018-09-17] MEDS: NS 1,000 ML IV SCH ×4 (04:40→23:19)
[2018-09-17] MEDS: SYNTHROID PO SCH ×2 (04:40→06:00)
[2018-09-17] MEDS: HUMULIN R SUBQ SCH ×4 (06:00→21:31)
[2018-09-17 06:02] LABS: BASO# 0.05 X1000 (0.0-0.2); BASO% 0.5 % (0.0-0.8); EOS# 0.31 X1000 (0.0-0.7); EOS% 3.3 % (0.0-10.0); HEMATOCRIT 32.8 % (37.0-47.0); HEMOGLOBIN 10.4 g/dL (12.0-16.0); LYMPH# 1.73 X1000 (1.2-3.4); LYMPH% 18.4 % (20.5-51.1); MCH 27.6 PG (27-31); MCHC 31.7 g/dL (33-37); MONO# 0.82 X1000 (0.11-0.59); MONO% 8.7 % (1.7-9.3); MPV 12.9 FL (7.4-10.4); NEUT# 6.51 X1000 (1.4-6.5); NEUT% 69.1 % (42.2-75.2); PLT 186 X1000 (130-400); RBC 3.77 XMIL (4.2-5.4); RDW 15.5 % (11.5-14.5); WBC 9.42 X1000 (4.8-10.8)
[2018-09-17 06:34] LABS: AGAP 9; ALB/GLOB RATIO 0.8; ALBUMIN 2.7 g/dL (3.5-5.0); ALKALINE PHOSPHATASE 772 U/L (32-104); BUN 7 mg/dL (8-22); CALCIUM 8.3 mg/dL (8.8-10.2); CHLORIDE 113 mmol/L (98-107); COSMO 288; CREATININE 0.8 mg/dL (0.5-0.9); ESTIMATED GFR > 60; GLUCOSE 150 mg/dL (70-104); GOT 96 U/L (10-30); GPT 44 U/L (10-36); POTASSIUM 3.6 mmol/L (3.5-5.1); SODIUM 144 mmol/L (136-145); TCO2 22 mmol/L (25-35); TOTAL BILIRUBIN 4.81 mg/dL (0.20-1.00); TOTAL PROTEIN 5.9 g/dL (6.3-8.3)
[2018-09-17] MEDS: ZOLOFT PO SCH (08:17)
[2018-09-17] MEDS: NEURONTIN PO SCH ×3 (08:17→16:48)
[2018-09-17] MEDS: KLONOPIN PO SCH ×2 (08:17→21:45)
[2018-09-17] MEDS: PERIDEX MT SCH ×2 (08:17→21:45)
[2018-09-17] MEDS: MIRALAX PO SCH ×2 (11:50→21:45)
--- NOTE | 2018-09-17 12:28 | PROGRESS NOTE ---
DATE: 09/17/2018 SUBJECTIVE: The patient is lying comfortably in bed. No acute events overnight. She has been placed n.p.o. after midnight. Hopefully she will get an ERCP done tomorrow. OBJECTIVE: Vital Signs: Temperature 98.3 degrees, pulse 69, respiratory rate 18, blood pressure 167/74, oxygen saturation 98 on room air. HEENT: Head normocephalic. No trauma. PERRLA. Her sclerae are [*] Neck: Supple. No JVD. No masses. Central trachea. Chest: Clear to auscultation. No wheezing. No rales. Abdomen: Soft, some tenderness to palpation around the periumbilical area and epigastric area. Extremities: No edema. No clubbing. No cyanosis. Neurological: The patient is alert and oriented x3. No focal deficits. LABORATORY DATA: WBC 9.4, hemoglobin 10.4, hematocrit 32.8, platelets 186,000. Sodium 144, potassium 3.6, chloride 113, bicarbonate 22, BUN 7, creatinine 0.8, glucose 150, calcium 8.3, total bilirubin 4.8, AST 96, ALT 44, alkaline phosphatase 772, albumin 2.7. Lipase 434. ASSESSMENT AND PLAN: 1. Bilateral hydronephrosis with renal stone status post cystoscopy, bilateral retrograde pyelograms, and placement of the right lateral stent, postoperative day #1. This patient seems to be doing a little bit better. Today, she is complaining of a little bit of nausea in the morning, though. I will continue with the same management for now. 2. Acute pancreatitis with a possible pancreatic mass. Continue with IV fluids. Tomorrow this patient will have an ERCP done by Gastroenterology department. She will be placed n.p.o. after midnight. 3. Urinary tract infection with a positive culture that showed Providencia stuartii. She is not complaining of any burning sensation or problem urinating at this moment. We will continue with the same management. I have repeated the urine culture again. 4. Hypertension, stable. 5. Hyperlipidemia. We will continue to monitor. 6. History of cerebrovascular accident (CVA). Aware. She has some mild left lower extremity weakness. Physical Therapy on board. 7. Hypothyroidism. We will continue with levothyroxine. cc: Abran MD Kaden Handley MD
--- NOTE | 2018-09-17 14:14 | GASTROENTEROLOGY PROGRESS NOTE ---
DATE: 09/17/2018 SUBJECTIVE: The patient is awake and alert, in no acute distress. She has visitors at the bedside. She had an MRI of the abdomen on 09/15/2018 that showed an apparent mass in the head of the pancreas. There are plans for ERCP tomorrow with possible stent placement. I have discussed the procedure with the patient. I have given her education material on ERCP procedure. VITAL SIGNS: Temperature 98.3 degrees, pulse 69, respirations 18, blood pressure 167/74. LABORATORY DATA: Hematology: WBC 9.42, hemoglobin 10.4, hematocrit 32.8, MCV 87.0, platelets 186,000. Chemistry: Sodium 144, potassium 3.6, chloride 113, CO2 of 22, BUN 7, creatinine 0.8. Total bilirubin 4.81, AST 96, ALT 44, alkaline phosphatase 772. CA19-9 is 16,495. ASSESSMENT AND PLAN: 1. Bilateral hydronephrosis with renal stones, status post cystoscopy and bilateral retrograde pyelogram and placement of a right stent, following with Urology. 2. Obstructive jaundice with endoscopic retrograde cholangiopancreatography showing a pancreatic mass. CA19-9 is elevated. 3. Urinary tract infection, on antibiotics. 4. Obstructive jaundice, most likely from carcinoma of the pancreas. Will proceed with an endoscopic retrograde cholangiopancreatography and most likely a stent placement tomorrow. I have explained the procedure, and given her a brochure on endoscopic retrograde cholangiopancreatography. I have discussed benefits versus risks, and she wishes to proceed. Further plans will be made as needed and according to findings. I have discussed this case with Dr. Martínez. Dictated by FRED Rubio for Shivam Martínez MD cc: FRED Riggs MD Alexis R. Penot, MD
[2018-09-18] MEDS: HUMULIN R SUBQ SCH ×4 (06:14→22:15)
[2018-09-18] MEDS: AZACTAM 1 GM in NS 50 ML IV SCH ×2 (06:18→19:27)
[2018-09-18] MEDS: SYNTHROID PO SCH (06:18)
[2018-09-18] MEDS: NS 1,000 ML IV SCH ×4 (06:33→22:14)
--- NOTE | 2018-09-18 07:09 | PROGRESS NOTE ---
DATE: 09/18/2018 SUBJECTIVE: No acute events over the weekend. The patient has been doing well. Remains afebrile. The patient underwent cystoscopy with bilateral retrograde pyelograms and right ureteral stent placement on Tuesday. Since then, she denies any flank pain. Her catheter has been draining well with clear yellow urine. The patient's urine culture from admission is growing Providencia, and she remains on antibiotics. The patient is made n.p.o. for possible biopsy of her pancreatic mass today with ERCP. OBJECTIVE: Vital Signs: Temperature 97.7 degrees, heart rate 68, blood pressure 173/71, oxygen saturation 98%. Respiratory: Good respiratory effort without audible wheezing or rales. General: No acute distress. Abdomen: Soft, nontender, nondistended. : No suprapubic tenderness. No CVA tenderness. She has a catheter in place with clear yellow urine. Extremities: Moving all extremities without issue. ASSESSMENT AND PLAN: Ms. Mendoza is an 78-year-old with hypertension, hyperlipidemia, history of nephrolithiasis, history of cerebrovascular accident, hypothyroidism, and dementia, who presented in consultation regarding bilateral renal stones with hydronephrosis bilaterally. Dr. Cardoza took her to the operating room on Tuesday for the patient to undergo cystoscopy and bilateral retrograde pyelograms and right ureteral stent placement. The patient, from a urologic standpoint, has been doing well. She continues to have elevated liver enzymes and a significant elevated CA19-9, and is scheduled to undergo endoscopic retrograde cholangiopancreatography today. Will continue to monitor. Likely can remove her catheter when she becomes more ambulatory. Continue to treat with intravenous antibiotics for her urinary tract infection. Her urine appears to be clearing, and she denies any flank pain. Will continue to monitor. Please call with questions or concerns. cc: MD Kaden Mueller MD MTDD
[2018-09-18 07:25] LABS: AGAP 11; ALB/GLOB RATIO 0.8; ALBUMIN 2.8 g/dL (3.5-5.0); ALKALINE PHOSPHATASE 842 U/L (32-104); AMYLASE 84 U/L (20-200); BUN 4 mg/dL (8-22); CALCIUM 8.6 mg/dL (8.8-10.2); CHLORIDE 109 mmol/L (98-107); COSMO 287; CREATININE 0.6 mg/dL (0.5-0.9); ESTIMATED GFR > 60; GLUCOSE 150 mg/dL (70-104); GOT 107 U/L (10-30); GPT 45 U/L (10-36); POTASSIUM 3.6 mmol/L (3.5-5.1); SODIUM 144 mmol/L (136-145); TCO2 24 mmol/L (25-35); TOTAL BILIRUBIN 5.11 mg/dL (0.20-1.00); TOTAL PROTEIN 6.5 g/dL (6.3-8.3)
[2018-09-18 07:27] LABS: LIPASE 433 U/L (13-60)
[2018-09-18] MEDS: NEURONTIN PO SCH ×3 (10:06→19:27)
[2018-09-18] MEDS: MIRALAX PO SCH ×2 (10:06→22:15)
[2018-09-18] MEDS: ZOLOFT PO SCH (10:06)
[2018-09-18] MEDS: KLONOPIN PO SCH ×2 (10:06→22:14)
--- NOTE | 2018-09-18 12:53 | PROGRESS NOTE ---
DATE: 09/18/2018 SUBJECTIVE: Patient resting comfortably in bed, no acute events overnight. She will have an ERCP done today. OBJECTIVE: Vital Signs: Temperature 98.1 degrees, pulse 81, respiratory rate 16, blood pressure 178/64, oxygen saturation 95% on room air. HEENT: Head normocephalic. No trauma. PERRLA. Icteric sclerae. Neck: Supple. No JVD. Central trachea. Chest: Clear to auscultation. No wheezing. No rales. She does have some ulcerative lesions on her chest which are chronic. Abdomen: Soft. Some tenderness to palpation around the periumbilical area and epigastric area. Extremities: No edema. No clubbing. No cyanosis. Neurological: The patient is alert and oriented x3. No focal deficits. LABORATORY: Sodium 144, potassium 3.6, chloride 109, bicarbonate 24, BUN 4, creatinine 0.6, glucose 150. Calcium 8.6. Total bilirubin 5.1, AST 107, ALT 45, alkaline phosphatase 142, albumin 2.8. ASSESSMENT AND PLAN: 1. Acute pancreatitis with a possible pancreatic mass. The CA 19-9 is really high. There is a possibility of malignancy. She will have an ERCP done today. Gastroenterology Department on board. We will continue with the same management. 2. Bilateral hydronephrosis with renal stone status post cystoscopy, bilateral retrograde pyelograms and placement of a right ureteral stent, postoperative day #3. I do believe she is getting better. We will continue to monitor. Urology Department on board. 3. Urinary tract infection with a positive culture that showed Providencia stuartii. She is not complaining of any dysuria or problem at this moment. We will continue with the same management. I have repeated the blood the urine culture again and is showing gram-positive cocci. 4. Hypertension, stable. 5. Hyperlipidemia. We will continue to monitor. 6. History of cerebrovascular accident, aware. She has some mild left lower extremity weakness. Physical therapy on board. 7. Hypothyroidism continue levothyroxine. 8. I will add Zyvox to her medications since she has a positive culture that showed gram-positive cocci in the urine. I will monitor. cc: MD Kaden Mccollum MD
[2018-09-18] MEDS ORDERED: DIPRIVAN 1% ONE ×2 (13:20→14:09)
[2018-09-18] MEDS ORDERED: XYLOCAINE-MPF 2% ONE (13:20)
[2018-09-18] MEDS ORDERED: GLUCAGON ONE (13:48)
[2018-09-18] MEDS ORDERED: ZOFRAN ONE (15:05)
--- NOTE | 2018-09-18 15:19 | Diag Imaging Result Doc PS360 ---
EXAM: ERCP-BILIARY AND PANCREATIC HISTORY: Obstructive jaundice and mass head of pancreas TECHNIQUE: COMPARISON: None. FINDINGS: Four views four views from an ERCP submitted. First films show surgical clips in the right upper quadrant and an inferior vena caval filter. Second through fourth films show contrast within the common bile duct. There is a nodular appearance to the common bile duct with possible multifocal extrinsic compression. Electronically signed by Bang Strickland 09/18/2018 3:16 PM
--- NOTE | 2018-09-18 19:02 | OPERATIVE NOTE ---
PROCEDURE DATE: 09/18/2018 PROCEDURE: Endoscopic retrograde cholangiopancreatography. PREOPERATIVE DIAGNOSES: 1. Obstructive jaundice. 2. Tumor, head of the pancreas. POSTOPERATIVE DIAGNOSES: Stricture, pancreatic duct. The common bile duct could not be cannulated. HISTORY: This is an 78-year-old, white female admitted to hospital with diarrhea and elevated LFT. Workup revealed a mass in the head of the pancreas with obstruction. She had intrahepatic duct dilation. CA 19-9 was significantly elevated. ERCP was done for diagnostic as well as therapeutic purposes. DESCRIPTION OF PROCEDURE: Informed consent obtained from the patient. The procedure, risks, benefits, alternatives were explained in layman's terms. She understood. Risks of, but not limited to bleeding, perforation, aspiration, pneumonia, and pancreatitis was explained. She understood and agreed to proceed. Patient was brought to the endoscopy unit and was premedicated as per Anesthesia. After adequate sedation, while she was lying in left lateral position, the duodenal scope was introduced into the posterior pharynx and advanced manually into the esophagus. She had evidence of large hiatal hernia. Scope was passed through the esophagus into the stomach. Stomach was insufflated. Pylorus identified. Scope was then passed through the pylorus into the duodenal bulb, and then to the second portion of duodenum. The major papilla was identified. Using a sphincterotome with the help of a guidewire, attempt was made to cannulate the common bile duct. The cannula kept on going into the pancreatic duct. The pancreatic duct showed severe stricture in the distal pancreatic duct and proximal pancreatic duct was slightly dilated. Multiple attempts were made to cannulate the common bile duct which was not successful. During the procedure, I did not see any bile excretion and bile in the major papilla area. After multiple failed times to cannulate the common bile duct, the procedure was stopped and patient was transferred to the recovery area in a stable condition. IMPRESSION: 1. 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 The common bile duct could not be cannulated. 2. Stricture, pancreatic duct with proximal pancreatic duct dilation. RECOMMENDATION: Patient most likely will need transfer to [place] or [place] depending on the availability of physician who can attempt repeat ERCP or endoscopic ultrasound to get a definitive diagnosis. She may need percutaneous access to the biliary duct if endoscopic access could not be achieved. I have explained the findings and plan to the patient's who was present bedside. He understood. All his pertinent questions answered. cc: MD Kaden Valdez MD Adnan A. Seljuki, MD
[2018-09-18] MEDS: PERIDEX MT SCH ×2 (19:20→22:14)
[2018-09-18] MEDS: ZYVOX 600 MG/D5W 600 MG/300 ML IVPB IV SCH (22:14)
[2018-09-19] MEDS: AZACTAM 1 GM in NS 50 ML IV SCH ×2 (03:09→09:51)
[2018-09-19] MEDS: HUMULIN R SUBQ SCH ×2 (06:18→11:45)
[2018-09-19] MEDS: SYNTHROID PO SCH (06:29)
[2018-09-19 06:44] LABS: AGAP 10; ALB/GLOB RATIO 0.8; ALBUMIN 2.6 g/dL (3.5-5.0); ALKALINE PHOSPHATASE 747 U/L (32-104); BUN 7 mg/dL (8-22); CALCIUM 8.2 mg/dL (8.8-10.2); CHLORIDE 106 mmol/L (98-107); COSMO 283; CREATININE 0.8 mg/dL (0.5-0.9); ESTIMATED GFR > 60; GLUCOSE 168 mg/dL (70-104); GOT 77 U/L (10-30); GPT 40 U/L (10-36); POTASSIUM 3.3 mmol/L (3.5-5.1); SODIUM 141 mmol/L (136-145); TCO2 25 mmol/L (25-35); TOTAL BILIRUBIN 5.59 mg/dL (0.20-1.00)
[2018-09-19] MEDS ORDERED: KLOR-CON PO ONE (09:44)
[2018-09-19] MEDS: ZOLOFT PO SCH (09:50)
[2018-09-19] MEDS: NEURONTIN PO SCH ×2 (09:50→12:29)
[2018-09-19] MEDS: PERIDEX MT SCH (09:50)
[2018-09-19] MEDS: MIRALAX PO SCH (09:51)
[2018-09-19] MEDS: KLONOPIN PO SCH (09:51)
[2018-09-19] MEDS: ZYVOX 600 MG/D5W 600 MG/300 ML IVPB IV SCH (09:55)
[2018-09-19] MEDS: NS 1,000 ML IV SCH (09:55)
--- NOTE | 2018-09-19 10:55 | DISCHARGE SUMMARY ---
ADMISSION DATE: 09/14/2018 DISCHARGE DATE: 09/19/2018 CONSULTATIONS: 1. Dr. Martínez with Gastroenterology. 2. Dr. Hi Estrada with Urology. PERTINENT PROCEDURES: 1. Abdomen and pelvis CT obstructing right UPJ stones. Significant bilateral nephrolithiasis. 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 2. Abdominal MRI. Apparent mass in the head of the pancreas. 3. Cystoscopic bilateral retrograde pyelogram and placement of right 6-Malagasy ureteral stent performed by Dr. Cardoza. 4. ERCP performed by Dr. Martínez for a stricture of the pancreatic duct. The common bile duct could not be cannulated so the patient will be transferred to [facility] with Dr. Weinberg to attempt to repeat ERCP or endoscopic ultrasound to get a definitive diagnosis. DISCHARGE DIAGNOSES: 1. Obstructive jaundice, tumor of the head of the pancreas, status post ERCP with Dr. Martínez though she did have a stricture of the pancreatic duct. The common bile duct could not be cannulated. For this, she will be transferred to [facility] where they can possibly re-attempt to repeat the ERCP or endoscopic ultrasound to get a definitive diagnosis. She may need percutaneous access to the pancreatic duct as endoscopic access could not be achieved. 2. Bilateral hydronephrosis with a right ureteropelvic junction stone causing obstruction, left ureteropelvic junction obstruction, likely congenital, status post cystoscopy, bilateral retrograde pyelogram, and placement of a right 6-Malagasy urethral stent by Dr. Cardoza. I have also discussed with her and with Dr. Cardoza that she would benefit in the future from a right percutaneous nephrostolithotomy. 3. Acute pancreatitis with possible pancreatic mass. See #1. 4. Urinary tract infection with positive culture that showed Providencia stuartii. She has been on IV antibiotics. 5. Hypertension stable. 6. Hyperlipidemia. 7. History of cerebrovascular accident, aware. She has some mild left lower extremity weakness. Physical Therapy is on board. 8. Hypothyroidism. Continue levothyroxine. HOSPITAL COURSE: Briefly, Ms. Mendoza is an 78-year-old female who presented to [facility] with complaints of right-sided abdominal pain that radiated to her back that have been present for a month, but progressively worsened. In the ED, she was found to have bilateral renal stones, bilateral hydronephrosis, urinary tract infection, acute pancreatitis, as well as elevated liver functions. She was transferred over to [facility] for higher level of care and specialty care with Gastroenterology as well as Urology. She underwent an abdominal MRI that showed apparent mass in the head of the pancreas as well as a cystoscopy with bilateral retrograde pyelogram, and placement of a right 6-Malagasy urethral stent with Dr. Cardoza. She then underwent an ERCP with Dr. Martínez that showed stricture of the pancreatic duct. The common bile duct could not be cannulated. He felt that she would need transfer to [facility] depending on the availability of the physician who could attempt to repeat ERCP or endoscopic ultrasound for definitive diagnosis and that she may need percutaneous access to the biliary duct if endoscopic abscess could not be achieved. The patient has been accepted by Dr. Weinberg, and will be transferred to [facility] when she has available hospitalist service there. VITAL SIGNS: At time of discharge, temperature is 98.6 degrees, heart rate 75, respirations 18, blood pressure 139/54, and O2 is 96% on room air. DISCHARGED DIET: Diabetic. CURRENT MEDICATIONS: 1. Azactam 1 g IV q.8 hours. 2. Precedex 15 mL PO b.i.d. 3. Klonopin 0.5 mg p.o. b.i.d. 4. Neurontin 300 mg p.o. t.i.d. 5. Plummer 5 1 each p.o. q.6 hours p.r.n. 6. Humulin R sliding scale per protocol. 7. Synthroid 100 mcg p.o. daily. 8. Normal saline at 100 mL/h. 9. Zofran 4 mg IV q.4 hours p.r.n. nausea and vomiting. 10. MiraLAX 17 g p.o. b.i.d. 11. Zoloft 100 mg p.o. daily. 12. Ultram 50 mg p.o. q.6 hours p.r.n. pain. 13. Zyvox 600 mg IV q.12 hours. DISPOSITION: The patient will be transferred to [facility]. She is to be accepted by their hospitalist service under the care of Dr. Weinberg with Gastroenterology. Discharged time: 35 minutes Dictated by FRED Smith for Abran Gray MD cc: MD Kaden Mccollum MD Dr. Karne Patrick Guthrie, MD Sergey S. Ananyev, MD Khurshid Yousuf, MD Adnan A. Seljuki, MD [facility]
[2018-09-19] MEDS ORDERED: VANCOMYCIN IV PER PHARMACY MISC SCH (11:15)
[2018-09-19 12:32] VITALS: BP 154/64
[2018-09-19] MEDS: VANCOMYCIN 1,500 MG in NS 250 ML IV ONE ×2 (13:03→13:39)
--- NOTE | 2018-09-19 14:22 | GASTROENTEROLOGY PROGRESS NOTE ---
DATE: 09/19/2018 SUBJECTIVE: Patient had an attempted ERCP yesterday on 09/18/2018. Indications for obstructive jaundice and tumor at the head of the pancreas. Findings showed a stricture at the pancreatic duct. The common bile duct could not be cannulated. She does have elevated CA19-9. Dr. Martínez has spoken with Dr. Weinberg at [facility], who has agreed to accept the patient on transfer. Dr. Martínez has also spoken with Dr. Molina. They are waiting on a bed assignment. OBJECTIVE: Vital Signs: Temperature 98.1 degrees, pulse 98, respirations 18, blood pressure 154/64. General: Patient is awake and alert. She complains of tiredness and some abdominal pain. LABORATORY: Hematology 9.42, hemoglobin 10.4, hematocrit 32.8, MCV 87.0, platelet 186,000. Chemistry: Sodium 141, potassium 3.3, chloride 106, CO2 of 25, BUN 7, creatinine 0.8, glucose 168, total bilirubin 5.59, AST 77, ALT 48, alkaline phosphatase 747. ASSESSMENT AND PLAN: 1. Pancreatic mass with elevated CA19-9. 2. Obstructive jaundice. Attempted endoscopic retrograde cholangiopancreatography (ERCP) was unsuccessful yesterday. Common bile duct could not be cannulated. Dr. Martínez has spoken with Dr. Weinberg at [facility], who agrees to accept the patient on transfer. Transfer process is currently in progress, waiting on bed availability. 3. Patient had bilateral hydronephrosis and renal stone status post cystoscopy, bilateral retrograde pyelogram, and placement of a right urethral stent. Following with Urology. We will continue to follow during her hospital course. Patient will be transferred to [facility] by care of hospitalist and acceptance of Dr. Weinberg for further evaluation. I have discussed this with the patient. Dr. Martínez has spoken with Dr. Weinberg and Dr. Molina. Dictated by FRED Rubio for Shivam Martínez MD cc: FRED Riggs MD Alexis R. Penot, MD [facility]
[2018-09-20] MEDS ORDERED: VANCOMYCIN 1 GM/NS 1 GM/250 ML IVPB IV SCH (13:00)
== END 2018-09-19 13:51 | disposition short-term general hospital (02) | DRG 987 ==
LOC: P.ED 12:39 → 4N 17:20 → SUATTDRO 17:20
PROVIDERS: ADMIT Internal Medicine; ATTEND Internal Medicine
PROC: EN.ERCP (2018-09-18 13:25)
CPT/HCPCS: 51702; 71020; 71046; 74176; 74182; 74330; 74420; 76700; 80053; 81001; 82140; 82150; 82948; 83036; 83605; 83690; 83735; 85025; 85610; 85730; 86301; 87040; 87077; 87088; 87186; 94761; 94799; 96365; 97161; 97530; 99285; A9270; A9579; C1769; J0744; J1610; J1885; J2020; J2405; J3370; J7030; J7050; Q9966; Q9967; S0073; XXXXX